=== PATIENT | female | born 1930 | race Caucasian/White ===

== ENCOUNTER 2020-06-23 10:06 | Inpatient (IN) | payer OTHER ==
[2020-06-23 10:11] VITALS: BMI 31.3
[2020-06-23] MEDS ORDERED: PIPERACILLIN/TAZOB 3.375 GM 3.375 GM in DEXTROSE 5%-WATER - 50 ML IVPB ONE (11:40)
[2020-06-23] MEDS ORDERED: VANCOMYCIN 1 GM in D5W (PRE-DOCKED) 1,000 MG/250 ML IVPB ONE (11:40)
[2020-06-23] MEDS ORDERED: PIPERACILLIN/TAZOB 3.375 GM 3.375 GM/50 ML BAG IVPB ONE (12:28)
[2020-06-23] MEDS ORDERED: VANCOMYCIN 1 GRAM (PRE-DOCKED) 1,000 MG/250 ML BAG IVPB ONE (12:28)
[2020-06-23 12:33] LABS: EOS % 5.8 % (0-4.5); HEMATOCRIT 30.4 % (32.4-45.2); HEMOGLOBIN 10.3 GM/dL (10.7-15.3); LYMPH % 20.5 % (8-40); MCH 28.3 pg (25.7-33.7); MCHC 33.7 g/dl (32.0-36.0); MEAN CELL VOLUME 83.9 fl (80-96); MEAN PLT VOLUME 7.5 fl (7.5-11.1); MONO % 9.1 % (3.8-10.2); NEUT % 63.6 % (42.8-82.8); PLATELET COUNT 261 K/MM3 (134-434); RBC 3.62 M/mm3 (3.60-5.2); RDW 16.1 % (11.6-15.6); WHITE BLOOD COUNT 8.4 K/mm3 (4.0-10.0)
[2020-06-23 13:01] LABS: ALBUMIN 3.1 g/dl (3.4-5.0); BLOOD UREA NITROGEN 39.4 mg/dL (7-18)
[2020-06-23 13:02] LABS: CALCIUM 9.2 mg/dL (8.5-10.1)
[2020-06-23 13:04] LABS: CREATININE 1.6 mg/dL (0.55-1.3)
[2020-06-23 13:06] LABS: BILIRUBIN,TOTAL 0.4 mg/dL (0.2-1); TOT PROT 6.8 g/dl (6.4-8.2)
[2020-06-23] MEDS ORDERED: SODIUM CHLORIDE 0.9% 500 ML INFUS.BAG IV ONE (15:15)
[2020-06-23] MEDS ORDERED: SODIUM CHLORIDE 1,000 ML IV SCH (17:45)
[2020-06-23] MEDS ORDERED: ACETAMINOPHEN 325 MG TABLET (FP) PO PRN (17:59)
[2020-06-23] MEDS ORDERED: HEPARIN NA (PORCINE) 5,000 UNITS/ML 1ML VIAL ONE ×2 (18:37→23:27)
[2020-06-23] MEDS: HEPARIN NA (PORCINE) 5,000 UNITS/ML 1ML VIAL SQ SCH ×2 (19:01→23:29)
[2020-06-23] MEDS ORDERED: PIPERACILLIN/TAZOB 2.25 GM 2.25 GM in DEXTROSE 5%-WATER - 50 ML IVPB SCH (21:00)
[2020-06-23] MEDS ORDERED: PIPERACILLIN/TAZOB 2.25 GM 2.25 GM/50 ML BAG IVPB ONE (22:08)
[2020-06-23] MEDS: PIPERACILLIN/TAZOB 2.25 GM 2.25 GM in DEXTROSE 5%-WATER - 50 ML IVPB SCH (22:09)
[2020-06-23 22:32] LABS: URINE APPEARANCE CLEAR; URINE BILIRUBIN NEGATIVE (NEGATIVE); URINE COLOR YELLOW; URINE GLUCOSE (UA) NEGATIVE (NEGATIVE); URINE KETONE NEGATIVE (NEGATIVE); URINE LEUK ESTERASE NEGATIVE (NEGATIVE); URINE NITRITE NEGATIVE (NEGATIVE); URINE PROTEIN NEGATIVE (NEGATIVE); URINE UROBILINOGEN 0.2 mg/dL (0.2-1.0)
[2020-06-23] MEDS: INSULIN SLIDING SCALE (NOVOLOG) 1 VIAL SQ SCH (23:10)
[2020-06-24] MEDS ORDERED: VANCOMYCIN 1,000 MG in DEXTROSE 5%-WATER - 250 ML IVPB SCH
[2020-06-24] MEDS ORDERED: VANCOMYCIN 1 GRAM (PRE-DOCKED) 1,000 MG/250 ML BAG IVPB ONE ×2 (00:37→13:42)
[2020-06-24] MEDS: VANCOMYCIN 1 GRAM (PRE-DOCKED) 1,000 MG/250 ML BAG IVPB SCH ×2 (00:48→14:10)
[2020-06-24] MEDS ORDERED: PIPERACILLIN/TAZOB 2.25 GM 2.25 GM/50 ML BAG IVPB ONE ×2 (04:06→09:00)
[2020-06-24] MEDS: PIPERACILLIN/TAZOB 2.25 GM 2.25 GM in DEXTROSE 5%-WATER - 50 ML IVPB SCH ×2 (04:07→09:27)
[2020-06-24] MEDS: INSULIN SLIDING SCALE (NOVOLOG) 1 VIAL SQ SCH ×2 (06:32→12:14)
[2020-06-24] MEDS ORDERED: HEPARIN NA (PORCINE) 5,000 UNITS/ML 1ML VIAL ONE ×2 (06:34→13:42)
[2020-06-24] MEDS: HEPARIN NA (PORCINE) 5,000 UNITS/ML 1ML VIAL SQ SCH ×2 (06:35→14:10)
[2020-06-24 08:16] LABS: BASO % 0.8 % (0-2.0); EOS % 6.2 % (0-4.5); HEMATOCRIT 33.4 % (32.4-45.2); HEMOGLOBIN 11.4 GM/dL (10.7-15.3); MCH 28.1 pg (25.7-33.7); MEAN CELL VOLUME 82.6 fl (80-96); MEAN PLT VOLUME 7.4 fl (7.5-11.1); MONO % 9.8 % (3.8-10.2); NEUT % 58.2 % (42.8-82.8); PLATELET COUNT 318 K/MM3 (134-434); RBC 4.05 M/mm3 (3.60-5.2); RDW 15.7 % (11.6-15.6); WHITE BLOOD COUNT 7.7 K/mm3 (4.0-10.0)
[2020-06-24 08:23] LABS: POTASSIUM 4.6 mmol/L (3.5-5.1)
[2020-06-24 08:25] LABS: ALBUMIN 2.9 g/dl (3.4-5.0); CALCIUM 8.9 mg/dL (8.5-10.1)
[2020-06-24 08:26] LABS: BLOOD UREA NITROGEN 29.1 mg/dL (7-18)
[2020-06-24 08:28] LABS: PHOSPHOROUS 3.4 mg/dL (2.5-4.9)
[2020-06-24 08:29] LABS: CREATININE 1.5 mg/dL (0.55-1.3)
[2020-06-24 08:30] LABS: BILIRUBIN,TOTAL 0.4 mg/dL (0.2-1)
[2020-06-24 08:55] LABS: IRON SERUM 22 ug/dL (50-175)
[2020-06-24 08:56] LABS: TOTAL IRON BINDING CAPACITY 319 ug/dL (250-450)
[2020-06-24 08:58] LABS: CHOLESTEROL 183 mg/dL (50-200)
[2020-06-24 08:59] LABS: LDL CHOLESTEROL (ONLY SJRH) 102 mg/dL (5-100); TRIGLYCERIDES 200 mg/dL (0-150)
[2020-06-24] MEDS ORDERED: amLODIPine BESYLATE 5 MG TABLET (FP) ONE (08:59)
[2020-06-24] MEDS ORDERED: ASPIRIN COATED 81 MG TABLET.EC ONE (08:59)
[2020-06-24 09:02] LABS: HDL CHOLESTEROL 39 mg/dL (40-60)
[2020-06-24] MEDS ORDERED: ACETAMINOPHEN 325 MG TABLET (FP) ONE (09:11)
[2020-06-24] MEDS ORDERED: ASPIRIN COATED 81 MG TABLET.EC PO SCH (10:00)
[2020-06-24] MEDS ORDERED: amLODIPine BESYLATE 5 MG TABLET (FP) PO SCH (10:00)
[2020-06-24 14:11] VITALS: BP 140/52; PULSE 72; TEMP 98.1
== END 2020-06-24 14:20 | disposition home or self-care (01) | DRG 383 ==
LOC: JER 10:06 → JERBED 17:39
PROVIDERS: ADMIT Internal Medicine; ATTEND Student in an Organized Health Care Education/Training Program
DX: L03.116 Cellulitis of left lower limb (principal); N17.9 Acute kidney failure, unspecified; L08.9 Local infection of the skin and subcutaneous tissue, unspecified; R73.03 Prediabetes; I44.0 Atrioventricular block, first degree; R94.31 Abnormal electrocardiogram [ECG] [EKG]; D64.9 Anemia, unspecified; E78.5 Hyperlipidemia, unspecified; I12.9 Hypertensive chronic kidney disease with stage 1 through stage 4 chronic kidney disease, or unspecified chronic kidney disease; N18.9 Chronic kidney disease, unspecified; I45.10 Unspecified right bundle-branch block
CPT/HCPCS: 36415; 71045-TC-FY; 73590-TC-LT-FY; 73718-TC-LT; 76775-TC; 80053; 80061; 81003; 82570; 82962; 83036; 83540; 83550; 83721; 83735; 84100; 84300; 84484; 85025; 85651; 93005; 93010; 93306-TC; 93970-TC; 99285-25; C9803; J1644; U0003; U0005